=== PATIENT | female | born 1975 | race Caucasian/White ===

== ENCOUNTER 2020-09-17 12:54 | Emergency (ER) | payer MEDICAID ==
[~2020-09-17] VITALS: Ht 157.5 cm; Wt 59.2 kg
[2020-09-17 13:07] VITALS: BP 123/69
--- NOTE | 2020-09-17 13:37 | NUR ---
Patient taken to x-ray from ED lobby via wheelchair by tech.
--- NOTE | 2020-09-17 13:58 | NUR ---
PATIENT AMBULATED TO ER BED 04
--- NOTE | 2020-09-17 14:20 | NUR ---
44 y/o F brought in from home with c/c right thumb pain x 3 days. Patient A&Ox4, ambulatory, reports her thumb was slammed against a car door. States 8/10 pain to right thumb. +CMS, limited ROM due to pain. Denies any medications prior to arrival. VSS; respirations even/unlabored. Bed locked in lowest position, side rails x1, call light in reach. PMH/Sx/Meds: Denies NKA
--- NOTE | 2020-09-17 14:20 | NUR ---
ALFONZO Martell is evaluating patient at bedside.
[2020-09-17] MEDS ORDERED: IBUPROFEN 600 MG TAB PO ONE (14:25)
--- NOTE | 2020-09-17 15:28 | NUR ---
PT PLACED IN ALUMINUM FOAM FINGER SPLINT, CMS WNL BEFOR AND AFTER
[2020-09-17] MEDS ORDERED: IBUP-2213 PO (15:29)
[2020-09-17] MEDS ORDERED: ACET-8386 PO (15:29)
[2020-09-17 15:41] VITALS: BP 123/69
--- NOTE | 2020-09-17 15:41 | NUR ---
Patient discharged with v/s stable. Written and verbal after care instructions given and explained. Patient alert, oriented and verbalized understanding of instructions. Ambulatory with steady gait. All questions addressed prior to discharge. ID band removed. Patient advised to follow up with PMD. Rx of Ibuprofen, Hydrocodone/Acetaminophen given. Patient educated on indication of medication including possible reaction and side effects. Opportunity to ask questions provided and answered.
== END 2020-09-17 15:41 | disposition home or self-care (01) ==
LOC: MED 12:54
DX: S60.011A Contusion of right thumb without damage to nail, initial encounter (principal); W22.8XXA Striking against or struck by other objects, initial encounter; Y93.89 Activity, other specified; Y92.89 Other specified places as the place of occurrence of the external cause; Y99.8 Other external cause status
CPT/HCPCS: 73140; 99283